=== PATIENT | male | born 1945 | race Caucasian/White ===

== ENCOUNTER 2022-09-17 12:33 | Emergency (ER) | payer OTHER ==
[2022-09-17 12:42] VITALS: BMI 37.2
[2022-09-17 14:49] LABS: BASO % 0.7 % (0-2.0); EOS % 2.4 % (0-4.5); HEMOGLOBIN 17.3 GM/dL (11.7-16.9); LYMPH % 17.2 % (8-40); MCH 28.9 pg (25.7-33.7); MEAN PLT VOLUME 9.6 fl (7.5-11.1); MONO % 7.6 % (3.8-10.2); NEUT % 72.1 % (42.8-82.8); PLATELET COUNT 216 10^3/uL (134-434); RDW 14.1 % (11.9-15.9); WHITE BLOOD COUNT 9.1 K/mm3 (4.0-10.0)
[2022-09-17 14:52] LABS: INR 1.06 (0.83-1.09); PROTHROMBIN TIME (PATIENT) 12.3 SEC (9.7-13.0)
[2022-09-17 14:54] LABS: ACTIVATED PTT 28.4 SECONDS (25.2-36.5)
[2022-09-17 15:02] LABS: POTASSIUM 4.1 mmol/L (3.5-5.1)
[2022-09-17 15:05] LABS: ALBUMIN 3.7 g/dl (3.4-5.0); BLOOD UREA NITROGEN 17.4 mg/dL (7-18); CALCIUM 9.4 mg/dL (8.5-10.1)
[2022-09-17 15:08] LABS: CREATININE 1.1 mg/dL (0.55-1.3)
[2022-09-17 15:10] LABS: BILIRUBIN,TOTAL 0.6 mg/dL (0.2-1); TOT PROT 7.1 g/dl (6.4-8.2)
[2022-09-17 15:14] LABS: N-TERMINAL BNP 378.2 pg/ml (5-450)
[2022-09-17] MEDS ORDERED: MECLIZINE HCL 25 MG TABLET (FP) PO ONE (16:23)
[2022-09-17] MEDS ORDERED: MECLIZINE HCL 25 MG TABLET (FP) ONE (16:25)
[2022-09-17 18:00] VITALS: BP 161/114; PULSE 91; RESP 18; TEMP 98
== END 2022-09-17 18:13 | disposition home or self-care (01) ==
LOC: JER 12:33
DX: R42 Dizziness and giddiness (principal); I10 Essential (primary) hypertension; R00.9 Unspecified abnormalities of heart beat; Z20.822 Contact with and (suspected) exposure to COVID-19
CPT/HCPCS: 0241U-QW; 36415; 71045-TC-FY; 80053; 83880; 84443; 84484; 85025; 85610; 85730; 93005; 93010; 99285-25